=== PATIENT | female | born 1965 | race Caucasian/White ===

== ENCOUNTER 2024-05-07 09:41 | Outpatient (REF) | payer MEDICAID, SELFPAY ==
--- NOTE | 2024-05-07 | ECG_ITS ---
Test Reason : med consideration Blood Pressure : / mmHG Vent. Rate : 092 BPM Atrial Rate : 092 BPM P-R Int : 130 ms QRS Dur : 082 ms QT Int : 372 ms P-R-T Axes : 076 067 050 degrees QTc Int : 460 ms Normal sinus rhythm Normal ECG No previous ECGs available Referred By: glenys [email or web address] Electronically Signed By:TAMI SMITH
[2024-05-07 10:25] LABS: MANUAL DIFF FLAG NO
[2024-05-07 10:46] LABS: Basophils Absolute Auto 0.1 X10*3/uL (0.0-0.2); Basophils Percent Auto 0.6 % (0-2); Eosinophils Absolute Auto 0.2 X10*3/uL (0.0-0.4); Hematocrit 35.7 % (37.0-47.0); Imm Gran Abs Auto 0.05 X10*3/uL (0.00-0.03); Imm Gran Pct Auto 0.6 % (0.0-0.4); Lymphocytes Absolute Auto 1.9 X10*3/uL (1.2-4.9); Lymphocytes Percent Auto 21.3 % (20-40); Mean Corpuscular HGB Conc 33.6 g/dl (31.0-35.0); Mean Corpuscular Hemoglobin 30.2 pg (27.0-33.0); Mean Corpuscular Volume 89.9 fL (80.0-98.0); Mean Platelet Volume 10.2 fL (9.4-12.3); Monocytes Absolute Auto 0.7 X10*3/uL (0.1-1.2); Monocytes Percent Auto 7.4 % (2-11); Neutrophils Percent Auto 68.1 % (45-73); Platelet Count 344 X10*3/uL (160-400); Red Blood Count 3.97 X10*6/uL (4.20-5.50); Red Cell Distribution Width 13.4 % (11.0-16.0); White Blood Count 8.9 X10*3/uL (4.8-10.8)
[2024-05-07 10:52] LABS: Estimated Average Glucose 105 mg/dL; Hemoglobin A1C 105.2942 umol/L; Hemoglobin A1c % 5.3 % (<6.0)
[2024-05-07 11:05] LABS: Lithium 0.12 mmol/L (0.60-1.20)
[2024-05-07 11:12] LABS: Alanine Aminotransferase 31 U/L (0-31); Albumin Level 4.5 g/dL (3.5-5.0); Alkaline Phosphatase 74 U/L (39-117); Anion Gap 10 (12-20); Aspartate Amino Transferase 21 U/L (5-31); Bilirubin Total 0.3 mg/dL (0.0-1.0); Blood Urea Nitrogen 17 mg/dL (9-16); Calcium 9.9 mg/dL (8.4-10.2); Carbon Dioxide 27 mmol/L (22-29); Chloride 109 mmol/L (96-108); Cholesterol 161 mg/dL (<200); Estimated Glomerular Filt Rate > 60; Glucose Random 116 mg/dL (60-115); HDL Cholesterol 60 mg/dL (>40); LDL Cholesterol Calculated 47 mg/dL (<100); Potassium 3.8 mmol/L (3.3-5.1); Sodium 142 mmol/L (135-145); Total Protein 7.8 g/dL (6.5-8.0); Triglycerides 271 mg/dL (<150)
== END 2024-05-07 09:42 | disposition home or self-care (01) ==
LOC: HO.LAB 09:41
PROVIDERS: Visit Provider Nurse Practitioner Psychiatric/Mental Health
DX: F14.20 Cocaine dependence, uncomplicated (principal); F31.9 Bipolar disorder, unspecified; Z13.1 Encounter for screening for diabetes mellitus
CPT/HCPCS: 36415; 80053; 80061; 80178; 83036; 85025; 93005